=== PATIENT | male | born 1945 | race Caucasian/White ===

== ENCOUNTER 2016-08-16 15:08 | Inpatient (IN) | payer MEDICARE, OTHER ==
[2016-08-16 15:11] VITALS: BMI 30.4
--- NOTE | 2016-08-16 15:38 | ED PDOC ---
Arrival/HPI - General Chief Complaint: Shortness Of Breath Time Seen by Provider: 08/16/16 15:20 - History of Present Illness Narrative History of Present Illness (Text): 08/16/16 15:36 70-year-old male with a history of end-stage renal disease on hemodialysis, brought to the emergency department from hemodialysis center for fluid overload. History obtained from patient's nurse and Dr. Frazier. States that patient has a history of CHF, diastolic dysfunction, hypertension, diabetes. Reports patient needs admission for his respiratory status. Patient denies any chest pain at this time, denies fevers chills. Patient does state that he has intermittent shortness of breath. No other complaints. Past Medical History - Provider Review Nursing Documentation Reviewed: Yes - Infectious Disease Hx of Infectious Diseases: None - Cardiac Hx Hypertension: Yes - Neurological Hx Paralysis: No - Renal Hx Dialysis: Yes - Hematological/Oncological Hx Blood Transfusions: Yes (1 YR AGO) Hx Blood Transfusion Reaction: No - Musculoskeletal/Rheumatological Hx Musculoskeletal Disorders: Yes - Psychiatric Hx Substance Use: No - Anesthesia Hx Anesthesia Reactions: No Hx Malignant Hyperthermia: No - Suicidal Assessment Feels Threatened In Home Enviroment: No Family/Social History - Physician Review Nursing Documentation Reviewed: Yes Family/Social History: Unknown Family HX Smoking Status: Never Smoked Hx Alcohol Use: No Hx Substance Use: No Allergies/Home Meds Allergies/Adverse Reactions: Allergies No Known Drug Allergies Allergy (Verified 05/05/15 07:32) NONE Home Medications: Home Meds Medication Instructions Recorded Confirmed ALPRAZolam [Xanax] 0.25 mg PO QPM 06/22/15 06/23/15 Aspirin [Ecotrin] 81 mg PO QAM 06/22/15 06/23/15 Bumetanide [Bumex] 2 mg PO BID 06/22/15 06/23/15 Calcitriol [Rocaltrol] 0.25 mcg PO QAM 06/22/15 06/23/15 Carvedilol [Coreg] 25 mg PO QAM 06/22/15 06/23/15 Clonidine HCl [Catapres] 0.3 mg PO BID 06/22/15 06/23/15 Eplerenone 25 mg PO QPM 06/22/15 06/23/15 Febuxostat [Uloric] 40 mg PO QAM 06/22/15 06/23/15 Glimepiride [amaRYL] 2 mg PO PRN PRN 06/22/15 06/23/15 Hydralazine HCl 100 mg PO BID 06/22/15 06/23/15 Isosorbide Mononitrate [Imdur] 90 mg PO QPM 06/22/15 06/23/15 NIFEdipine ER [Procardia XL] 90 mg PO QAM 06/22/15 06/23/15 Potassium Chloride [K-Dur 20] 20 meq PO QAM 06/22/15 06/23/15 Rosuvastatin Calcium [Crestor] 10 mg PO QPM 06/22/15 06/23/15 Sertraline [Zoloft] 100 mg PO HS 06/22/15 06/23/15 predniSONE [predniSONE Tab] 5 mg PO DAILY 06/22/15 06/23/15 Physical Exam - Physical Exam Narrative Physical Exam (Text): - Review of Systems Constitutional: Normal. absent: Fatigue, Weight Change, Fevers Eyes: Normal ENT: denies sore throat, denies tristhmus Respiratory: Shortness of breath. absent: Cough, Sputum Cardiovascular: absent: Chest Pain, Palpitations, Syncope Gastrointestinal: Normal. absent: Abdominal Pain, Diarrhea, Nausea, Vomiting Genitourinary: Normal. absent: Dysuria, Frequency, Hematuria Musculoskeletal: Normal. absent: Arthralgias, Back Pain, Neck Pain Skin: no rashes, no erythema Neurological: absent: Focal Weakness Endocrine: Normal Hemo/Lymphatic: Normal Psychiatric: No suicidal or homicidal ideations Physical exam Patient appears age appropriate in no respiratory distress - Systems Exam Head: Present: Atraumatic, Normocephalic Pupils: Present: PERRL Extroacular Muscles: Present: EOMI Conjunctiva: Present: Normal Mouth: Present: Moist Mucous Membranes Neck: Present: Normal Range of Motion. No: MIDLINE TENDERNESS, Paraspinal Tenderness Respiratory/Chest: Present: Right hemodialysis catheter, right basilar wheezing with scattered rhonchi, Good Air Exchange. No: Respiratory Distress, Accessory Muscle Use, Tachypneic Cardiovascular: Present: Regular Rate and Rhythm, Normal S1, S2, Peripheal Pulses Present. No: Murmurs Abdomen: Present: Normal Bowel Sounds. No: Tenderness, Distention, Peritoneal Signs, Rebound, Guarding Back: Present: Normal Inspection. No: Midline Tenderness, Paraspinal Tenderness Upper Extremity: Present: Normal Inspection. No: Cyanosis, Edema Lower Extremity: Present: Bilateral pitting edema with no asymmetry or tenderness to palpation. Neurological: Present: GCS=15, Speech Normal, cranial nerves II through XII fully intact with no cerebellar abnormality, neurosensory fully intact. No focal neurological deficits. Skin: Present: Warm, Dry, Normal Color. No: Rashes Lymphatic: Present: OX3, NI, NC Psychiatric: Present: Alert, not anxious Vital Signs Reviewed: Yes Vital Signs Temp Pulse Resp BP Pulse Ox 08/16/16 16:42 55 L 16 147/60 98 08/16/16 16:27 52 L 193/76 H 100 08/16/16 15:08 98.3 F 56 L 18 174/87 H 96 Temperature: Afebrile Blood Pressure: Hypertensive Pulse: Bradycardic Respiratory Rate: Normal Appearance: Positive for: Non-Toxic, Comfortable Pain Distress: None Mental Status: No: Agitated, Lethargic Medical Decision Making ED Course and Treatment: 08/16/16 15:49 71-year-old male history of hemodialysis, diastolic dysfunction, hypertension, diabetes, sent from hemodialysis center fluid overload. On examination patient does not appear to be in respiratory distress, however he does have bibasilar wheezing and scattered rhonchi. Case has been discussed with patient's range scientist Dr. Frazier, who recommends admission for further workup. Patient's primary physician is Dr. Tameka Garrett with [place] [facility] [place] shows sinus bradycardia, 55 bpm, no ST segment elevations. Interpreted by me. Plan to obtain labs, imaging, nebulizer treatment, reevaluate. 08/16/16 16:44 Patient's wheezing has greatly improved after nebulizer treatments. Patient hypertension has been treated with Nitropaste and hydralazine IV. On reevaluation, patients blood pressure is 140s over 60s. Patient has no focal neurological deficits on reevaluation. Case discussed with , except that admission to her service for further workup. Patient aware of and agrees with plan. 08/16/16 16:46 Patient's Chest x-ray shows cardiomegaly, vascular congestion, no obvious infiltrates, no pneumothorax. Interpreted by me. - Critical Care Critical Care Minutes: 30 minutes - Lab Interpretations Lab Results: 08/16/16 15:40 08/16/16 15:40 Lab Results 08/16/16 15:40: Sodium 137, Potassium 3.1 L, Chloride 97 L, Carbon Dioxide 29, Anion Gap 14, BUN 23 H, Creatinine 2.3 H, Est GFR ( Amer) 34, Est GFR ( Non-Af Amer) 28, Random Glucose 82, Calcium 9.0, Total Bilirubin 1.0, AST 21, ALT 30, Alkaline Phosphatase 68, Total Protein 7.5, Albumin 4.1, Globulin 3.5, Albumin/Globulin Ratio 1.2 08/16/16 15:40: PT 12.1 H, INR 1.12 H, APTT 31.9 H 08/16/16 15:40: WBC 3.1 L D, RBC 2.90 L, Hgb 8.7 L, Hct 26.1 L, MCV 90.0, MCH 30.0, MCHC 33.3, RDW 14.3, Plt Count 155, MPV 9.3, Gran % 67.1, Lymph % (Auto) 19.7 L, [place] % (Auto) 8.7 H, Eos % (Auto) 3.9, Baso % (Auto) 0.6, Gran # 2.07, Lymph # 0.6 L, [place] # 0.3, Eos # 0.1, Baso # 0.02 - RAD Interpretation Radiology Orders: 08/16/16 15:32 CHEST PORTABLE [RAD] Stat - Medication Orders Current Medication Orders: Hydralazine HCl (Apresoline) 10 mg IVP STAT CHON Last Admin: 08/16/16 16:30 Dose: 10 mg Discontinued Medications Albuterol/Ipratropium (Duoneb 3 Mg/0.5 Mg (3 Ml) Ud) 3 ml IH STAT STA Stop: 08/16/16 15:51 Last Admin: 08/16/16 16:04 Dose: 3 ml Methylprednisolone (Solu-Medrol) 125 mg IVP STAT STA Stop: 08/16/16 15:51 Last Admin: 08/16/16 16:03 Dose: 125 mg Nitroglycerin (Nitro-Bid 2% Oint) 1 ea TOP STAT STA Stop: 08/16/16 16:12 Last Admin: 08/16/16 16:30 Dose: 1 ea Disposition/Present on Arrival - Present on Arrival Any Indicators Present on Arrival: No History of DVT/PE: No History of Uncontrolled Diabetes: No Urinary Catheter: No History of Decub. Ulcer: No History Surgical Site Infection Following: None - Disposition Have Diagnosis and Disposition been Completed?: Yes Diagnosis: Hypertension Disposition: HOSPITALIZED Disposition Time: 16:47 Patient Plan: Admission Patient Problems: Current Active Problems Problem Status Onset Hypertension Acute Condition: FAIR Referrals: Tameka Garrett MD [Primary Care Provider] - Follow up with primary
[2016-08-16] MEDS ORDERED: Albuterol-Ipratrop 3 mg / 0.5 (3 ml) UD IH STA (15:50)
[2016-08-16 16:05] LABS: ADD MANUAL DIFF? NO
[2016-08-16] MEDS ORDERED: Nitroglycerin 2% Ointment Foilpak UD TOP STA (16:11)
[2016-08-16 16:15] LABS: BASO # 0.02 K/mm3 (0.0-2.0); BASO % 0.6 % (0.0-3.0); EOS # 0.1 (0.0-0.7); EOS % 3.9 % (1.5-5.0); GRAN # 2.07 (1.4-6.5); GRAN % 67.1 % (50.0-68.0); HEMATOCRIT 26.1 % (42.0-52.0); LYMPH # 0.6 (1.2-3.4); LYMPH % 19.7 % (22.0-35.0); MEAN CORPUSCULAR HGB CONC 33.3 g/dl (31.0-37.0); MEAN PLATELET VOLUME 9.3 fl (7.0-11.0); MONO # 0.3 (0.1-0.6); MONO % 8.7 % (1.0-6.0); PLATELET COUNT 155 10^3/uL (120.0-450.0); RED CELL DISTRIBUTION WIDTH 14.3 % (11.5-14.5); WHITE BLOOD COUNT 3.1 10^3/ul (4.5-11.0)
[2016-08-16 16:21] LABS: POTASSIUM 3.1 mmol/L (3.6-5.0); TOTAL PROTEIN 7.5 g/dL (5.8-8.3)
[2016-08-16 16:22] LABS: ALB/GLOB RATIO 1.2 (1.1-1.8)
[2016-08-16 16:23] LABS: INR 1.12 (0.93-1.08); PARTIAL THROMBOPLASTIN TIME 31.9 Seconds (23.7-30.8)
[2016-08-16] MEDS ORDERED: Albuterol-Ipratrop 3 mg / 0.5 (3 ml) UD IH PRN (17:29)
[2016-08-16] MEDS ORDERED: Cefepime 1gm in NS 100ml 1 GM/100 ML BAG IVPB STA (17:39)
[2016-08-16] MEDS ORDERED: Vancomycin 1gm in NS 250ml 1 GM/250 ML BAG IVPB STA (17:39)
--- NOTE | 2016-08-16 20:45 | CT ---
EXAM: CT Chest Without Intravenous Contrast CLINICAL HISTORY: 70 years old, male; Signs and symptoms; Cough; Symptoms not specified; Additional info: R/O pneumonia Additional history: Treated lymphoma TECHNIQUE: Axial computed tomography images of the chest without intravenous contrast. This CT exam was performed using one or more of the following dose reduction techniques: automated exposure control, adjustment of the mA and/or kV according to patient size, and/or use of iterative reconstruction technique. MIP reconstructed images were created and reviewed. Coronal and sagittal reformatted images were created and reviewed. EXAM DATE/TIME: 08/16/2016 5:32 PM COMPARISON: DX - CHEST PORTABLE 08/16/2016 3:46:23 PM FINDINGS: Artifacts: Motion artifact degrades image quality.Streak artifact degrades image quality. Lungs: Trachea and main bronchi are patent. There is narrowing of left upper and lower lobe bronchi in the hilum. There is narrowing of right upper, middle and lower lobe bronchi the right hilum. Motion limited evaluation of the pulmonary parenchyma. There are asymmetric groundglass opacities greatest at the lung bases. There is scarring at the right apex. There is more focal air space disease in the lingula. Pleural space: There is a small right effusion. There is no definite left effusion. Heart: The heart is enlarged. There is there is a prosthetic mitral valve.There are coronary artery calcifications. Calcifications in the aorta and great vessels. There is mild prominence of the ascending aorta, the 0.86 cm in maximal dimension. There is mild prominence of main pulmonary artery 3.4 cm in diameter. Mediastinum: There is mediastinal adenopathy. Hilar fullness suggests hilar adenopathy. Thyroid: Thyroid is not optimally demonstrated. Bones/joints: Bony structures are osteopenic.There are degenerative changes in the osseus structures.There are postsurgical changes of median sternotomy. There is mild compression deformity T3, T4, T5 and T7. Soft tissues: unremarkable Vasculature: See above. Lymph nodes: See findings above and below. Upper abdomen: Pancreas is atrophic. Nodular opacities in the upper mesentery suggest adenopathy. Tubes, lines and devices: There is a right jugular catheter the tip at the cavoatrial junction. IMPRESSION: Mediastinal and hilar adenopathy; probable upper mesenteric adenopathy; limited evaluation of pulmonary parenchyma due to patient motion, bilateral groundglass airspace disease, no lobar or segmental consolidation; small right effusion; cardiomegaly and atherosclerotic disease; prosthetic mitral valve Additional findings as described above.
--- NOTE | 2016-08-16 20:54 | CARD ---
APPROVED REPORT EKG Measurement Heart [id number] <Conclusion> Sinus bradycardia T wave abnormality, consider inferior ischemia Prolonged QT Abnormal ECG
[2016-08-16] MEDS: Albuterol-Ipratrop 3 mg / 0.5 (3 ml) UD IH SCH (21:02)
--- NOTE | 2016-08-16 21:05 | CP.PCM.HP ---
<Alexander Lopez - Last Filed: 08/16/16 21:26> History of Present Illness - History of Present Illness History of Present Illness: HPI: Patient is a 70yo male with past medical history of ESRD on hemodialysis ( Mon, , Mon), CHF, diastolic dysfunction, hypertension and diabetes mellitus type 2 that presents upon recommendation of his rails developer, Dr. Frazier for fluid overload. Patient is a poor historian despite use of a information technology teacher. History obtained from his daughter, Yola who reported that for the past 2-3 days her father has been having shortness of breath associated with wheezing and coughing. He resides at [facility] and was reportedly exposed to some sick residents. His daughter also reported that between his dialysis session on Monday and today, he had gained approximately 6kg in weight. She reported that he has been noncooperative with his diet restrictions and drinks copious amounts of water at the shelter. He also reportedly has a habit of not taking his medication. Patient denied chest pain, palpitations, abdominal pain, nausea, vomiting, fever, chills, cough, focal weakness, numbness, tingling. He admitted to cough with shortness of breath. 12 point ROS as per HPI above, otherwise negative PMHx: ESRD on hemodialysis (Mon, , Mon), CHF, diastolic dysfunction, hypertension, DM2 PSHx: Mitral valve repair (2008), right hip replacement, right knee repair Allergies: NKDA Medications: reviewed and as per chart Family Hx: Noncontributory Social Hx: Denies tobacco use, illicit drugs and alcohol use; Lives in [facility] Present on Admission - Present on Admission Any Indicators Present on Admission: No Past Patient History - Infectious Disease Hx of Infectious Diseases: None - Past Social History Smoking Status: Never Smoked - CARDIAC Hx Hypertension: Yes - NEUROLOGICAL Hx Paralysis: No - RENAL Hx Dialysis: Yes - HEMATOLOGICAL/ONCOLOGICAL Hx Blood Transfusions: Yes (1 YR AGO) Hx Blood Transfusion Reaction: No - MUSCULOSKELETAL/RHEUMATOLOGICAL Hx Musculoskeletal Disorders: Yes - PSYCHIATRIC Hx Substance Use: No - SURGICAL HISTORY Hx Surgeries: Yes - ANESTHESIA Hx Anesthesia Reactions: No Hx Malignant Hyperthermia: No Meds Allergies/Adverse Reactions: Allergies Allergy/AdvReac Type Severity Reaction Status Date / Time No Known Drug Allergies Allergy NONE Verified 05/05/15 07:32 Physical Exam - Constitutional Appears: Non-toxic, No Acute Distress - Head Exam Head Exam: ATRAUMATIC, NORMAL INSPECTION, NORMOCEPHALIC - Eye Exam Eye Exam: EOMI Pupil Exam: PERRL - ENT Exam ENT Exam: Mucous Membranes Moist - Neck Exam Neck exam: Positive for: Normal Inspection - Respiratory Exam Respiratory Exam: Rhonchi, Wheezes. absent: Accessory Muscle Use, Rales, Respiratory Distress, Stridor - Cardiovascular Exam Cardiovascular Exam: RRR, +S1, +S2. absent: Gallop, JVD, Rubs - GI/Abdominal Exam GI & Abdominal Exam: Soft. absent: Distended, Firm, Guarding, Rebound, Rigid, Tenderness - Extremities Exam Extremities exam: Positive for: pedal edema (3+ pitting edema), pedal pulses present. Negative for: tenderness - Neurological Exam Neurological exam: Alert, Oriented x3 - Psychiatric Exam Psychiatric exam: Normal Affect, Normal Mood - Skin Skin Exam: Dry, Intact, Normal Color, Warm Results - Vital Signs Recent Vital Signs: Last Vital Signs Temp 98.3 F 08/16/16 15:08 Pulse 71 08/16/16 20:44 Resp 18 08/16/16 20:44 BP 153/59 H 08/16/16 20:44 Pulse Ox 97 08/16/16 20:44 - Labs Result Diagrams: 08/16/16 15:40 08/16/16 15:40 Labs: Laboratory Results - last 24 hr 08/16/16 17:53 POC Glucose (mg/dL) 122 H Assessment & Plan - Assessment and Plan (Free Text) Plan: 70yo male with history of ESRD on hemodialysis (Tue, Thur, Sat), CHF, diastolic dysfunction, HTN, DM2 presents for shortness of breath associated with cough for past 2-3 days 1. Volume overload secondary to ESRD vs PNA -afebrile, no leukocytosis -CXR reviewed; cardiomegaly; increased interstitial markings; concerning for pulmonary edema vs PNA -EKG reviewed -CT Chest pending -Echocardiogram pending -Home medication reviewed and reconciled -Nephrology consulted - Dr. Frazier -Patient to be scheduled to continue inpatient dialysis as per nephrology recommendations -Pending: Blood culture, sputum culture, procalcitonin 2. CHF -EKG reviewed -Echocardiogram pending -Continue cardiac medications 3. Hypertension -Continue home antihypertensive medications 4. Diabetes mellitus type 2 -Fingersticks ACHS -Renal diet -Humulin med dose ISS Patient seen, reviewed and case discussed with attending, Dr. Colón - Date & Time Date: 08/16/16 Time: 21:08 <Wil Colón - Last Filed: 08/17/16 14:10> Results - Vital Signs Recent Vital Signs: Last Vital Signs Temp 97.4 F L 08/17/16 12:00 Pulse 64 08/17/16 12:00 Resp 16 08/17/16 12:00 BP 188/70 H 08/17/16 11:57 Pulse Ox 95 08/17/16 06:00 - Labs Result Diagrams: 08/16/16 15:40 08/16/16 15:40 Labs: Laboratory Results - last 24 hr 08/16/16 08/16/16 08/17/16 17:53 22:30 07:12 POC Glucose (mg/dL) 122 H 201 H 97 08/17/16 11:15 POC Glucose (mg/dL) 134 H Attending/Attestation - Attestation I have personally seen and examined this patient.: Yes I have fully participated in the care of the patient.: Yes I have reviewed all pertinent clinical information: Yes Notes (Text): 08/17/16 14:06 Attending note; Patient seen and examined with resident in ER. Patient is mostly Italian speaking. Not willing to give information to the information technology teacher. History from rails developer/old chart and patient's daughter. Patient is a 70 year old Italian male with past medical history of ESRD on hemodialysis (Tue, Thur, Sat), CHF, diastolic dysfunction, hypertension and diabetes mellitus type 2 that presents upon recommendation of his rails developer, Dr. Frazier for fluid overload. Patient just got hemodialysis today. Patient has difficult to control volume status. Patient is currently in [place] [facility]. Patient is also refusing to take blood pressure medication. Shortness of breath and cough; mostly secondary to volume overload. We will give extra hemodialysis tomorrow. Case discussed with rails developer in detail. Chest x-ray showed right perihilar infiltrate. CT chest ordered. Anemia; chronic secondary to menstruation renal disease. Depression; will get psych evaluation. Upon discharge patient will follow-up with PMD Dr. Tameka Garrett. 08/17/16 14:09
[2016-08-16] MEDS: Insulin Reg-MEDIUM-Coverage SC SCH ×2 (22:21→22:32)
[2016-08-17] MEDS: Albuterol-Ipratrop 3 mg / 0.5 (3 ml) UD IH SCH ×5 (01:37→20:18)
[2016-08-17] MEDS: Pantoprazole 40 mg EC Tab PO SCH (06:09)
[2016-08-17] MEDS ORDERED: Potassium Chloride 20 mEq ER Tab PO ONE (06:30)
[2016-08-17] MEDS ORDERED: Metoprolol 1 mg/ml Inj IVP PRN (07:13)
[2016-08-17] MEDS: Insulin Reg-MEDIUM-Coverage SC SCH ×4 (08:10→21:41)
--- NOTE | 2016-08-17 08:41 | RAD ---
HISTORY: cough COMPARISON: No prior. FINDINGS: LUNGS: Hilar fullness with main the right perihilar small patchy airspace opacities. Discoid atelectasis and/or scarring in the left mid lung. Hilar lymphadenopathy with or without hilar vascular engorgement in the differential. An element of pulmonary vascular congestion is suspect. Superimposed small patchy airspace opacities of unclear significance are also suggested. No dense consolidation appreciated. PLEURA: No significant pleural effusion identified, no pneumothorax apparent. CARDIOVASCULAR: Cardiomegaly. OSSEOUS STRUCTURES: Midline sternotomy. Valvular prosthesis suggested probably mitral VISUALIZED UPPER ABDOMEN: Normal. OTHER FINDINGS: There is a right jugular catheter the tip at the cavoatrial junction. IMPRESSION: Cardiomegaly with hilar fullness -in part some of this may be due to pulmonary vascular congestion. There is additional history of treated lymphoma ; hence hilar lymphadenopathy is in the differential with acardiomegaly. Pulmonary vascular congestion is suspect. Additional small patchy right lung opacities unclear significance coalescent areas of pulmonary in of interstitial pulmonary edema, nonspecific small infiltrates and/or lymphomatous deposits are also in the differential. Please note this same-day CT chest report for more sensitive evaluation
[2016-08-17] MEDS ORDERED: Non Formulary Medication (Febuxostat [Uloric] 40 MG) PO SCH (10:00)
[2016-08-17] MEDS: NIFEdipine 90 mg ER Tab PO SCH (10:34)
--- NOTE | 2016-08-17 12:30 | CP.PCM.PN ---
<KelliKim - Last Filed: 08/17/16 12:26> Subjective - Date & Time of Evaluation Date of Evaluation: 08/17/16 Time of Evaluation: 10:00 - Subjective Subjective: Hospitalist Progress Note Patient seen and examined at bedside. There were no acute overnight events. He had dialysis today and will have it once again today. Patient is depressed today. He is refusing medications. He denies CP, SOB, n/v/d, numbness/tingling. Objective - Vital Signs/Intake and Output Vital Signs (last 24 hours): Temp Pulse Resp BP Pulse Ox 98.7 F 83 20 188/70 H 95 08/17/16 06:00 08/17/16 11:57 08/17/16 06:00 08/17/16 11:57 08/17/16 06:00 Intake and Output: 08/17/16 08/17/16 06:59 18:59 Intake Total 240 Output Total 0 Balance 240 - Medications Medications: Current Medications Albuterol/Ipratropium (Duoneb 3 Mg/0.5 Mg (3 Ml) Ud) 3 ml IH [id number] [facility] Last Admin: 08/17/16 07:59 Dose: Not Given Albuterol/Ipratropium (Duoneb 3 Mg/0.5 Mg (3 Ml) Ud) 3 ml IH Q2H PRN PRN Reason: Shortness of Breath Aspirin (Ecotrin) [facility] [place] [facility] [place] Admin: 08/17/16 10:34 Dose: Not Given Atorvastatin Calcium (Lipitor) 40 mg PO DIN [facility] Last Admin: 08/16/16 19:17 Dose: Not Given Calcitriol (Rocaltrol) 0.25 mcg [facility] [place] Last Admin: 08/17/16 10:35 Dose: Not Given Clonidine HCl (Catapres) 0.1 mg PO TID PRN PRN Reason: Systolic Blood Pressure Last Admin: 08/16/16 22:11 Dose: 0.1 mg Hydralazine HCl (Apresoline) 25 mg PO BID [facility] Last Admin: 08/17/16 10:34 Dose: Not Given Hydralazine HCl (Apresoline) 10 mg IVP Q6 PRN PRN Reason: Systolic Blood Pressure Insulin Human Regular (Humulin R Med) 0 units SC [facility] PRN Reason: Protocol Last Admin: 08/17/16 12:04 Dose: Not Given Isosorbide Mononitrate (Imdur) 90 mg PO QPM [facility] Last Admin: 08/16/16 18:35 Dose: Not Given Labetalol HCl (Trandate) 200 mg PO BID [facility] Last Admin: 08/17/16 10:35 Dose: Not Given Metoprolol Tartrate (Lopressor) 5 mg IVP Q6 PRN PRN Reason: Systolic Blood Pressure Last Admin: 08/17/16 11:57 Dose: 5 mg Minoxidil (Minoxidil) 5 mg PO BID [facility] Last Admin: 08/17/16 10:34 Dose: Not Given Mirtazapine (Remeron) 15 mg PO [facility] Last Admin: 08/16/16 22:11 Dose: 15 mg Nifedipine (Procardia Xl) 90 mg PO QAM [facility] Last Admin: 08/17/16 10:34 Dose: Not Given Pantoprazole Sodium (Protonix Ec Tab) 40 mg PO 0630 [facility] Last Admin: 08/17/16 06:09 Dose: Not Given Sertraline HCl (Zoloft) 100 mg PO [facility] Last Admin: 08/16/16 22:11 Dose: 100 mg - Labs Labs: PT 12.1 Seconds (9.9-11.8) H 08/16/16 15:40 INR 1.12 (0.93-1.08) H 08/16/16 15:40 APTT 31.9 Seconds (23.7-30.8) H 08/16/16 15:40 - Constitutional Appears: No Acute Distress - Head Exam Head Exam: NORMAL INSPECTION, NORMOCEPHALIC - Eye Exam Eye Exam: Normal appearance Pupil Exam: NORMAL ACCOMODATION - ENT Exam ENT Exam: Mucous Membranes Moist - Neck Exam Neck Exam: Full ROM - Respiratory Exam Respiratory Exam: Clear to Ausculation Bilateral, NORMAL BREATHING PATTERN. absent: Rales, Rhonchi, Wheezes - Cardiovascular Exam Cardiovascular Exam: REGULAR RHYTHM, +S1, +S2. absent: Gallop, Rubs, Murmur - GI/Abdominal Exam GI & Abdominal Exam: Soft, Normal Bowel Sounds. absent: Rigid, Tenderness, Mass , Rebound - Extremities Exam Extremities Exam: Pedal Edema. absent: Calf Tenderness - Neurological Exam Neurological Exam: Awake, CN II-XII Intact - Psychiatric Exam Psychiatric exam: Depressed, Normal Affect - Skin Skin Exam: Dry, Normal Color, Warm Assessment and Plan - Assessment and Plan (Free Text) Assessment: This is a 70Y M with PMH ESRD on HD (T,T,Sat), CHF, HTN, DM and diastolic dysfunction admitted for fluid overload. Plan: 1. Fluid overload - improved - secondary to ESRD - HD yesterday- removed 8kg of fluid, HD today - Continue to monitor daily weight, strict I&O - Echo pending - Family wants AV fistula- this will be done as outpatient with Dr. De La O - Will do AV mapping to prep for outpatient fistula - Nephro Dr. Frazier consulted- help appreciated - Continue Duoneb prn SOB - Continue Calcitriol 2. Lymphadenopathy - CT chest showed hilar and mediastinal adenopathy - Pt noted to have this for years as per daughter - Dr. Kelley (Heme/Onc) consulted. - If biopsy needed, will need to do at diff facility that has cardiothoracic surgeon 3. Depression - Patient reports feeling depressed - Refusing medications and blood draw - Psych consulted - Continue Remeron and Zoloft 3. CHF - Echo pending - Continue to monitor daily weight, strict I&O - Continue ASA, Lipitor 4. HTN - Pt refusing meds - Hydralazine IV prn, Clonidine prn - Continue Hydralaine, Imdur, Labetolol, Lopressor, Minoxidil, Nifedipine 5. DM - ISS - Blood glucose monitor ACHS - maintain euglycemia GI ppx: Protonix DVT ppx: Heparin with dialysis Dispo: Upon D/C patient will be sent to halfway. Educated on the importance of taking medications. Spoke with daughter who is aware of situation. Will follow up with Dr. Frazier (Nephro), Dr. Kelley (Heme), Dr. Marquez (PMD) and Dr. Hargrove (Surgery) as outpatient. Case seen, reviewed and discussed with attending Rocio Pereira PGY1 <Wil Colón - Last Filed: 08/17/16 14:13> Objective - Vital Signs/Intake and Output Vital Signs (last 24 hours): Temp Pulse Resp BP Pulse Ox 97.4 F L 64 16 188/70 H 95 08/17/16 12:00 08/17/16 12:00 08/17/16 12:00 08/17/16 11:57 08/17/16 06:00 Intake and Output: 08/17/16 08/17/16 06:59 18:59 Intake Total 240 Output Total 0 Balance 240 - Medications Medications: Current Medications Albuterol/Ipratropium (Duoneb 3 Mg/0.5 Mg (3 Ml) Ud) 3 ml IH [id number] [facility] Last Admin: 08/17/16 14:05 Dose: Not Given Albuterol/Ipratropium (Duoneb 3 Mg/0.5 Mg (3 Ml) Ud) 3 ml IH Q2H PRN PRN Reason: Shortness of Breath Aspirin (Ecotrin) 81 mg PO QAM [facility] Last Admin: 08/17/16 10:34 Dose: Not Given Atorvastatin Calcium (Lipitor) 40 mg PO DIN [facility] Last Admin: 08/16/16 19:17 Dose: Not Given Calcitriol (Rocaltrol) 0.25 mcg PO QAM [facility] Last Admin: 08/17/16 10:35 Dose: Not Given Clonidine HCl (Catapres) 0.1 mg PO TID PRN PRN Reason: Systolic Blood Pressure Last Admin: 08/16/16 22:11 Dose: 0.1 mg Hydralazine HCl (Apresoline) 25 mg PO BID [facility] Last Admin: 08/17/16 10:34 Dose: Not Given Hydralazine HCl (Apresoline) 10 mg IVP Q6 PRN PRN Reason: Systolic Blood Pressure Insulin Human Regular (Humulin R Med) 0 units SC [facility] PRN Reason: Protocol Last Admin: 08/17/16 12:04 Dose: Not Given Isosorbide Mononitrate (Imdur) 90 mg PO QPM [facility] Last Admin: 08/16/16 18:35 Dose: Not Given Labetalol HCl (Trandate) 200 mg PO BID [facility] Last Admin: 08/17/16 10:35 Dose: Not Given Metoprolol Tartrate (Lopressor) 5 mg IVP Q6 PRN PRN Reason: Systolic Blood Pressure Last Admin: 08/17/16 11:57 Dose: 5 mg Minoxidil (Minoxidil) 5 mg PO BID [facility] Last Admin: 08/17/16 10:34 Dose: Not Given Mirtazapine (Remeron) 15 mg PO HS [facility] Last Admin: 08/16/16 22:11 Dose: 15 mg Nifedipine (Procardia Xl) 90 mg PO QAM [facility] Last Admin: 08/17/16 10:34 Dose: Not Given Pantoprazole Sodium (Protonix Ec Tab) 40 mg PO 0630 [facility] Last Admin: 08/17/16 06:09 Dose: Not Given Sertraline HCl (Zoloft) 100 mg PO [facility] Last Admin: 08/16/16 22:11 Dose: 100 mg Vitamin B Complex/Vit C/Folic Acid (Nephro-Jamari) 1 tab PO DAILY [facility] - Labs Labs: PT 12.1 Seconds (9.9-11.8) H 08/16/16 15:40 INR 1.12 (0.93-1.08) H 08/16/16 15:40 APTT 31.9 Seconds (23.7-30.8) H 08/16/16 15:40 Attending/Attestation - Attestation I have personally seen and examined this patient.: Yes I have fully participated in the care of the patient.: Yes I have reviewed all pertinent clinical information, including history, physical exam and plan: Yes Notes (Text): Attending note; Patient seen and examined with resident in room 277. Patient is a 70 year old [place]ian male with past medical history of ESRD on hemodialysis (Tue, Thur, Sat), CHF, diastolic dysfunction, hypertension and diabetes mellitus type 2 that presents upon recommendation of his customer support associate, Dr. Frazier for fluid overload. Patient will get hemodialysis today. Patient is also refusing to take blood pressure medication. IV metoprolol when necessary ordered. Shortness of breath and cough; mostly secondary to volume overload. We will give extra hemodialysis tomorrow. Case discussed with customer support associate in detail. Chest x-ray showed right perihilar infiltrate. CT chest showed right hilar lymphadenopathy. Case discussed with pulmonary in detail. Case discussed with oncology Dr. Kelley in detail. Right chest dialysis catheter. Patient will need AV fistula as outpatient. Vein mapping will be done. Follow-up with outpatient for AV fistula. Anemia; chronic secondary to menstruation renal disease. Depression; will get psych evaluation. Case discussed with patient's daughter in detail by the resident. Upon discharge patient will follow-up with PMD Dr. Tameka Garrett.
--- NOTE | 2016-08-17 14:55 | CP.PCM.CON ---
History of Present Illness - History of Present Illness History of Present Illness: Initial Nephrology Consultation: Assessment/Plan: End stage renal disease on hemodialysis (monday and ) via permacath with fluid overload and shortness of breath: Will plan for isolated UF today and routine HD tomorrow. Nephrovite 1 tab/day. vascular surgery eval for AVF. Anemia: PRBC as needed. On ALLIE as Aranesp 60 mcg on , last Hb 8.7 Phos controlled Secondary hyperparathyroidism: continue with calcitriol. Last PTH level 110. Hypertension control with meds as ordered. will add losartan 50 mg/day. compliance to meds reinforced Hilar and mediastinal lymphadenopathy: heme/onc eval. Hypokalemia: repeat BMP Glycemic control, Dialysis consistent diet Further work up for as per primary team Dose meds/antibiotics (if needed) for ESRD status. Avoid fleets enema/magnesium based laxatives. oral fluid restriction to 1000 mL/day Thanks for allowing me to participate in care of your patient. Will follow patient with you. 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 Found to have lymphadenopathy. he had poor compliance to fluid restriction, often gaining 5-6 Kgs between treatments. He feels better now. had been refusing meds today. Denies chest pain, palpitation. Improved shortness of breath, leg swelling. has cough ROS: Constitutional Symptoms: Denies fever. No chills. No Recent Weight Changes Eyes: denies change in vision, denies watery eyes, denies double vision Ears/Nose/Mouth/Throat: Denies Abnormal Taste. No Bad breath or Bad Taste. Cardiovascular: No chest pain. There is shortness of breath. No palpitations. Pulmonary: c/o shortness of breath and cough. Gastrointestinal: denies abdominal pain No nausea. No vomiting. Denies change in bowel habits. Denies Bleeding Genitourinary: makes small amount urine Neurological: Denies headaches. No dizziness. Denies loss of balance. Denies weakness, denies tingling/numbness Dermatological: No Rash or Bruising or ulcers. Psychiatric: Denies Anxiety. c/o depression. Denies hallucinations. Rheumatological: No joint pain. c/o leg swelling Endocrine: Denies over tiredness. Denies Fatigue and Heat/Cold Intolerance. Physical Examination: General Appearance: Comfortable, in no acute respiratory distress, co-operative . Vitals reviewed and noted as below Head; Atraumatic, normocephalic ENT: no ulcers no thrush. Tongue is midline. Oropharynx: no rash or ulcers. EYES: Pupils are equal, round and reactive to light accommodation. Eye muscles and extraocular movement intact. Sclera is anicteric. Neck; supple no lymphadenopathy, no thyromegaly or bruit Lungs: Normal respiratory rate/effort. Breath sounds bilateral equal, no wheeze. bibasal few crackles + Heart: Normal rate. s1s2 normal. No rub or gallop. Extremities: 2+ edema. No varicose veins Neurological: Patient is alert, awake and oriented to person, place and time. No focal deficit. Strength bilateral appropriate and equal Skin: Warm and dry. Normal turgor. No rash. Palpitation: Normal elasticity for age Abdomen: Abdomen is soft. Bowel sounds +. There is no abdominal tenderness, no guarding/rigidity or organomegaly Psych: normal insight and normal affect/mood MSK: no joint tenderness or swelling. Digits and nails normal, no deformity : kidney or bladder not palpable Access: Permacath Labs/imaging/EKG reviewed. Past medical history, past surgical history, family history, social history, allergy reviewed and noted as below Past Patient History - Infectious Disease Hx of Infectious Diseases: None - Past Social History Smoking Status: Never Smoked - CARDIAC Hx Cardiac Disorders: Yes Hx Congestive Heart Failure: Yes Hx Hypertension: Yes - PULMONARY Hx Respiratory Disorders: No - NEUROLOGICAL Hx Neurological Disorder: No - HEENT Hx HEENT Problems: No - RENAL Date of Last Dialysis Treatment: 08/16/16 - ENDOCRINE/METABOLIC Hx Endocrine Disorders: Yes Hx Diabetes Mellitus Type 2: Yes - HEMATOLOGICAL/ONCOLOGICAL Hx Blood Disorders: Yes Hx Anemia: Yes - INTEGUMENTARY Hx Dermatological Problems: No - MUSCULOSKELETAL/RHEUMATOLOGICAL Hx Falls: No - GASTROINTESTINAL Hx Gastrointestinal Disorders: No - GENITOURINARY/GYNECOLOGICAL Hx Genitourinary Disorders: No - PSYCHIATRIC Hx Substance Use: No - SURGICAL HISTORY Hx Surgeries: Yes Other/Comment: hip and knee replacement - ANESTHESIA Hx Anesthesia Reactions: No Hx Malignant Hyperthermia: No Meds Allergies/Adverse Reactions: Allergies Allergy/AdvReac Type Severity Reaction Status Date / Time No Known Drug Allergies Allergy NONE Verified 05/05/15 07:32 - Medications Medications: Current Medications Albuterol/Ipratropium (Duoneb 3 Mg/0.5 Mg (3 Ml) Ud) 3 ml IH [id number] [facility] Last Admin: 08/17/16 14:05 Dose: Not Given Albuterol/Ipratropium (Duoneb 3 Mg/0.5 Mg (3 Ml) Ud) 3 ml IH Q2H PRN PRN Reason: Shortness of Breath Aspirin (Ecotrin) 81 mg PO QAM [facility] Last Admin: 08/17/16 10:34 Dose: Not Given Atorvastatin Calcium (Lipitor) 40 mg PO DIN [facility] Last Admin: 08/16/16 19:17 Dose: Not Given Calcitriol (Rocaltrol) 0.[facility] [place] Last Admin: 08/17/16 10:35 Dose: Not Given Clonidine HCl (Catapres) 0.1 mg PO TID PRN PRN Reason: Systolic Blood Pressure Last Admin: 08/16/16 22:11 Dose: 0.1 mg Hydralazine HCl (Apresoline) 25 mg PO BID [facility] Last Admin: 08/17/16 10:34 Dose: Not Given Hydralazine HCl (Apresoline) 10 mg IVP Q6 PRN PRN Reason: Systolic Blood Pressure Insulin Human Regular (Humulin R Med) 0 units SC [facility] PRN Reason: Protocol Last Admin: 08/17/16 12:04 Dose: Not Given Isosorbide Mononitrate (Imdur) 90 mg PO QPM [facility] Last Admin: 08/16/16 18:35 Dose: Not Given Labetalol HCl (Trandate) 200 mg PO BID [facility] Last Admin: 08/17/16 10:35 Dose: Not Given Metoprolol Tartrate (Lopressor) 5 mg IVP Q6 PRN PRN Reason: Systolic Blood Pressure Last Admin: 08/17/16 11:57 Dose: 5 mg Minoxidil (Minoxidil) 5 mg PO BID [facility] Last Admin: 08/17/16 10:34 Dose: Not Given Mirtazapine (Remeron) 15 mg PO HS [facility] Last Admin: 08/16/16 22:11 Dose: 15 mg Nifedipine (Procardia Xl) 90 mg PO QAM [facility] Last Admin: 08/17/16 10:34 Dose: Not Given Pantoprazole Sodium (Protonix Ec Tab) 40 mg PO 0630 [facility] Last Admin: 08/17/16 06:09 Dose: Not Given Sertraline HCl (Zoloft) 100 mg PO [facility] Last Admin: 08/16/16 22:11 Dose: 100 mg Vitamin B Complex/Vit C/Folic Acid (Nephro-Jamari) 1 tab PO DAILY [facility] Results - Vital Signs Recent Vital Signs: Last Vital Signs Temp 97.4 F L 08/17/16 12:00 Pulse 64 08/17/16 12:00 Resp 16 08/17/16 12:00 BP 188/70 H 08/17/16 11:57 Pulse Ox 95 08/17/16 06:00 - Labs Result Diagrams: 08/16/16 15:40 08/16/16 15:40 Labs: Laboratory Results - last 24 hr 08/16/16 08/16/16 08/17/16 17:53 22:30 07:12 POC Glucose (mg/dL) 122 H 201 H 97 08/17/16 11:15 POC Glucose (mg/dL) 134 H
--- NOTE | 2016-08-17 16:01 | CP.PCM.CON ---
History of Present Illness - History of Present Illness History of Present Illness: 70 y/o M brought to [facility] due to increased SOb and cough possibly from fluid overload. I was consulted after CT chest was done and findings are to be addressed. Currently the patient is seen sitting up in bed eating his breakfast without oxygen. He refused to allow any physical exam but is not in any distress. Review of Systems - Review of Systems Systems not reviewed;Unavailable: Altered Mental Status All systems: reviewed and no additional remarkable complaints except (pt does not speak turkish. HX taken from daughter over the phone.) Past Patient History - Infectious Disease Hx of Infectious Diseases: None - Past Medical History & Family History Past Medical History?: Yes - Past Social History Smoking Status: Never Smoked Chewing Tobacco Use: No Cigar Use: No - CARDIAC Hx Cardiac Disorders: Yes Hx Congestive Heart Failure: Yes Hx Hypertension: Yes - PULMONARY Hx Respiratory Disorders: No - NEUROLOGICAL Hx Neurological Disorder: No - HEENT Hx HEENT Problems: No - RENAL Date of Last Dialysis Treatment: 08/16/16 - ENDOCRINE/METABOLIC Hx Endocrine Disorders: Yes Hx Diabetes Mellitus Type 2: Yes - HEMATOLOGICAL/ONCOLOGICAL Hx Blood Disorders: Yes Hx Anemia: Yes - INTEGUMENTARY Hx Dermatological Problems: No - MUSCULOSKELETAL/RHEUMATOLOGICAL Hx Falls: No - GASTROINTESTINAL Hx Gastrointestinal Disorders: No - GENITOURINARY/GYNECOLOGICAL Hx Genitourinary Disorders: No - PSYCHIATRIC Hx Substance Use: No - SURGICAL HISTORY Hx Surgeries: Yes Other/Comment: hip and knee replacement - ANESTHESIA Hx Anesthesia Reactions: No Hx Malignant Hyperthermia: No Meds Allergies/Adverse Reactions: Allergies Allergy/AdvReac Type Severity Reaction Status Date / Time No Known Drug Allergies Allergy NONE Verified 05/05/15 07:32 - Medications Medications: Current Medications Albuterol/Ipratropium (Duoneb 3 Mg/0.5 Mg (3 Ml) Ud) 3 ml IH [id number] [facility] Last Admin: 08/17/16 14:05 Dose: Not Given Albuterol/Ipratropium (Duoneb 3 Mg/0.5 Mg (3 Ml) Ud) 3 ml IH Q2H PRN PRN Reason: Shortness of Breath Aspirin (Ecotrin) 81 mg PO QAM [facility] Last Admin: 08/17/16 10:34 Dose: Not Given Atorvastatin Calcium (Lipitor) 40 mg PO DIN [facility] Last Admin: 08/16/16 19:17 Dose: Not Given Calcitriol (Rocaltrol) 0.25 mcg PO QAM [facility] Last Admin: 08/17/16 10:35 Dose: Not Given Clonidine HCl (Catapres) 0.1 mg PO TID PRN PRN Reason: Systolic Blood Pressure Last Admin: 08/16/16 22:11 Dose: 0.1 mg Darbepoetin Bg (Aranesp) 60 mcg IVP ONCE ONE Stop: 08/18/16 07:01 Hydralazine HCl (Apresoline) 25 mg PO BID [facility] Last Admin: 08/17/16 10:34 Dose: Not Given Hydralazine HCl (Apresoline) 10 mg IVP Q6 PRN PRN Reason: Systolic Blood Pressure Insulin Human Regular (Humulin R Med) 0 units SC [facility] PRN Reason: Protocol Last Admin: 08/17/16 12:04 Dose: Not Given Isosorbide Mononitrate (Imdur) 90 mg PO QPM [facility] Last Admin: 08/16/16 18:35 Dose: Not Given Labetalol HCl (Trandate) 200 mg PO BID [facility] Last Admin: 08/17/16 10:35 Dose: Not Given Losartan Potassium (Cozaar) 50 mg PO DAILY [facility] Metoprolol Tartrate (Lopressor) 5 mg IVP Q6 PRN PRN Reason: Systolic Blood Pressure Last Admin: 08/17/16 11:57 Dose: 5 mg Minoxidil (Minoxidil) 5 mg PO BID [facility] Last Admin: 08/17/16 10:34 Dose: Not Given Mirtazapine (Remeron) 30 mg PO [facility] Nifedipine (Procardia Xl) 90 mg PO QAM [facility] Last Admin: 08/17/16 10:34 Dose: Not Given Pantoprazole Sodium (Protonix Ec Tab) 40 mg PO 0630 [facility] Last Admin: 08/17/16 06:09 Dose: Not Given Sertraline HCl (Zoloft) 100 mg PO HS [facility] Last Admin: 08/16/16 22:11 Dose: 100 mg Vitamin B Complex/Vit C/Folic Acid (Nephro-Jamari) 1 tab PO DAILY [facility] Physical Exam - Constitutional Appears: Well - Head Exam Head Exam: ATRAUMATIC, NORMAL INSPECTION - Eye Exam Eye Exam: EOMI, Normal appearance Pupil Exam: NORMAL ACCOMODATION - ENT Exam ENT Exam: Mucous Membranes Moist, Normal Exam (pt refused physical exam. ) Results - Vital Signs Recent Vital Signs: Last Vital Signs Temp 97.4 F L 08/17/16 12:00 Pulse 86 08/17/16 14:00 Resp 16 08/17/16 12:00 BP 188/70 H 08/17/16 11:57 Pulse Ox 95 08/17/16 06:00 - Labs Result Diagrams: 08/16/16 15:40 08/16/16 15:40 Labs: Laboratory Results - last 24 hr 08/16/16 08/16/16 08/17/16 17:53 22:30 07:12 POC Glucose (mg/dL) 122 H 201 H 97 08/17/16 11:15 POC Glucose (mg/dL) 134 H Assessment & Plan - Assessment and Plan (Free Text) Assessment: 70 y/o M w/ SOb upon admission to [facility] SOb Likely from increased Fluid overload seen on Ct chest. CT chest reviewed and found to have increased GGo likely from increased fluid overload. No masses, but seen to have increased Hilar Lymphadenopathy and Mediastinal nodes. No Hx of Smoking, sarcoid or Lymphoma Hx was reviewed with the patient's daughter and she explained that 2 years prior a Bank Appraiser was concerned about the lymph nodes and ordered a PET ct in concern for Lymphoma . I explained that the Ct chest shows Hilar nodes and fullness . Concern for benign vs malignant causes. For definitive diagnosis Biopsy should be done. I explained that if the patient wants to explore the options of Biopsy, then scheduling and planning have to be done with Ct surgery or a place that offers EBUS. The daughter will speak to the patient to determine if he wants the procedure to be done in the near future. The patient has been losing 20 lbs in the past 6 months and lethargic while having Large lymph nodes. We will await her decision so we can move forward. After adequate fluid removal with HD, and possible repeat CT in the future the CHEST maybe evaluated once again. We will follow along.
[2016-08-17 16:11] LABS: ADD MANUAL DIFF? NO
[2016-08-17 16:26] LABS: BASO # 0.01 K/mm3 (0.0-2.0); BASO % 0.3 % (0.0-3.0); EOS % 0.3 % (1.5-5.0); GRAN # 2.87 (1.4-6.5); GRAN % 74.5 % (50.0-68.0); LYMPH # 0.6 (1.2-3.4); LYMPH % 16.1 % (22.0-35.0); MEAN CELL VOLUME 90.3 fL (80.0-105.0); MEAN CORPUSCULAR HEMOGLOBIN 29.7 pg (25.0-35.0); MEAN CORPUSCULAR HGB CONC 32.9 g/dl (31.0-37.0); MEAN PLATELET VOLUME 10.2 fl (7.0-11.0); MONO # 0.3 (0.1-0.6); MONO % 8.8 % (1.0-6.0); PLATELET COUNT 195 10^3/uL (120.0-450.0); RED CELL DISTRIBUTION WIDTH 14.7 % (11.5-14.5); WHITE BLOOD COUNT 3.9 10^3/ul (4.5-11.0)
[2016-08-17 17:18] LABS: ALB/GLOB RATIO 1.1 (1.1-1.8); BILIRUBIN,TOTAL 0.9 mg/dL (0.2-1.3); CALCIUM 9.5 mg/dL (8.4-10.5); POTASSIUM 3.5 mmol/L (3.6-5.0); TOTAL PROTEIN 7.7 g/dL (5.8-8.3)
--- NOTE | 2016-08-17 20:09 | CON ---
DATE: 08/17/2016 Shortly, patient is a 70-year-old male, end-stage renal disease on hemodialysis. The patient was adm itted to the medical floor for evaluation of fluid overload and dialysis. The patient was found to b e depressed. Psych consult was called. The patient presented to have some psychomotor retardation, flat affect. The patient reported that he feels depressed and upset. Denied thoughts of killing him self or others. The patient reported that he is tired of hemodialysis and patient was asking about h emodialysis procedure and why it takes 4 hours for him for dialysis. The patient was educated about that. The patient verbalized understanding. At the same time, patient reported his sleep is not devin t good. The patient denied hearing voices, denied seeing things, denied paranoid ideations. The pat ient was able, enjoyed going to [facility] and participating in [facility] activities. PAST PSYCHIATRIC HISTORY: The patient denied. The patient denied history of suicidal attempts. The patient denied being admitted to the psychiatric inpatient unit. The patient reported that he lives with his daughters in [place] as well as with his friend. The patient reported his family is mccarthy pportive. VITAL SIGNS: Reviewed. Temperature 97.4, pulse is 86, blood pressure 188/70, respirations 16. MEDICATIONS: Reviewed. DuoNeb, aspirin, Lipitor, , Catapres, hydralazine, Humulin, Imdur, labe talol, Lopressor, minoxidil, Remeron, Procardia, Protonix, Zoloft, vitamin B complex. The patient wa s refusing his medications today without any obvious reasons. LABORATORIES: Reviewed. MENTAL STATUS EXAMINATION: The patient appears to be alert. The patient knows that he is in the hos pital. Intermittent eye contact. Speech was underproductive, low volume. Mood described as depress ed. Affect was constricted, mood congruent. Thought process was coherent and goal directed, but obv iously patient has some language barrier. Thought content: The patient denied visual, auditory, or tactile hallucinations. Denied paranoid ideations. The patient denied thoughts of harming himself o r others, denied intent or plan. Insight and judgment are limited because patient was refusing his m edications. Impulses are controlled. IMPRESSION: Rule out mood disorder due to general medical condition, rule out major depressive disor froilan. The patient has multiple medical issues including end-stage renal disease on hemodialysis. The patient also has congestive heart failure, diastolic dysfunction, hypertension, diabetes. PLAN: The patient already on Remeron 15 mg. We can increase the dose to 30 mg. Zoloft can be phillip nued. This inspector automatic typewriter will follow up on this patient. Please call family for support and being involved into the patient's care. The patient does not need to be on 1:1 as of now. I will follow up and ad vise accordingly. Thank you very much for letting me participate in care of your patient. Berta Song MD cc: [phone] TT: 08/17/2016 20:08:47 Confirmation # [id number] Dictation # [id number]
[2016-08-18 00:29] VITALS: O2SAT 97
[2016-08-18] MEDS: Albuterol-Ipratrop 3 mg / 0.5 (3 ml) UD IH SCH ×4 (02:23→14:26)
[2016-08-18] MEDS: Pantoprazole 40 mg EC Tab PO SCH (06:31)
[2016-08-18] MEDS ORDERED: Darbepoetin Alfa 60 mcg/ml Inj IVP ONE (07:00)
[2016-08-18 07:56] LABS: ADD MANUAL DIFF? NO
[2016-08-18 08:06] LABS: BASO # 0.03 K/mm3 (0.0-2.0); BASO % 0.7 % (0.0-3.0); EOS # 0.1 (0.0-0.7); EOS % 1.8 % (1.5-5.0); GRAN # 2.98 (1.4-6.5); GRAN % 67.1 % (50.0-68.0); HEMATOCRIT 28.2 % (42.0-52.0); LYMPH # 0.9 (1.2-3.4); LYMPH % 20.9 % (22.0-35.0); MEAN CELL VOLUME 91.9 fL (80.0-105.0); MEAN CORPUSCULAR HEMOGLOBIN 29.6 pg (25.0-35.0); MEAN CORPUSCULAR HGB CONC 32.3 g/dl (31.0-37.0); MEAN PLATELET VOLUME 9.6 fl (7.0-11.0); MONO # 0.4 (0.1-0.6); MONO % 9.5 % (1.0-6.0); PLATELET COUNT 230 10^3/uL (120.0-450.0); RED CELL DISTRIBUTION WIDTH 14.8 % (11.5-14.5); WHITE BLOOD COUNT 4.4 10^3/ul (4.5-11.0)
[2016-08-18 08:14] LABS: ALB/GLOB RATIO 1.1 (1.1-1.8); BILIRUBIN,TOTAL 0.9 mg/dL (0.2-1.3); POTASSIUM 3.3 mmol/L (3.6-5.0); TOTAL PROTEIN 7.4 g/dL (5.8-8.3)
[2016-08-18] MEDS: Insulin Reg-MEDIUM-Coverage SC SCH ×3 (08:20→16:55)
[2016-08-18] MEDS ORDERED: Multivitamin Vitamin B Complex (Nephro-Vite) Tab PO SCH (10:00)
--- NOTE | 2016-08-18 12:09 | CARD ---
APPROVED REPORT EXAM: Two-dimensional and M-mode echocardiogram with Doppler and color Doppler. INDICATION LV Function:SystolicDiastolic 2D DIMENSIONS Left Atrium (2D)4.8 (1.6-4.0cm)IVSd1.4 (0.7-1.1cm) LVDd5.5 (3.9-5.9cm)LVOT Diameter2.1 (1.8-2.4cm) PWd1.8 (0.7-1.1cm)LVDs4.0 (2.5-4.0cm) FS (%) 27.3 %LVEF (%)52.5 (>50%) M-Mode DIMENSIONS Aortic Root3.60 (2.2-3.7cm)Aortic Cusp Exc.1.10 (1.5-2.0cm) Aortic Valve AoV Peak Tuwmqtgo591.0cm/sAoV VTI59.8cmAO Peak GR.34mmHg LVOT Peak Ktcbgeev350.0cm/sLVOT VTI22.00cmAO Mean GR.17mmHg KENNEY (VMAX)1.62us7FAR (VTI)1.27cm2 Mitral Valve MV E Vzsibnlj780.0cm/sMV A Eloddhpt751.0cm/sE/A ratio1.4 TDI E/Lateral E'0.0E/Medial E'0.0 Tricuspid Valve TR Peak Nrjemiiq577ey/sRAP EVDGLSCG82kgVtSD Peak Gr.73mmHg [id number] LEFT VENTRICLE The left ventricle is normal size. There is mild to moderate concentric left ventricular hypertrophy. The left ventricular ejection fraction is within the normal range. Mild Septal hypokinesis Transmitral Doppler flow pattern is Grade II-pseudonormal filling dynamics. RIGHT VENTRICLE The right ventricle is normal size. There is normal right ventricular wall thickness. The right ventricular systolic function is normal. ATRIA The left atrium is mildly dilated. The right atrium is mildly dilated. AORTIC VALVE The aortic valve is severely sclerotic. There is mild valvular aortic stenosis. MITRAL VALVE There is no mitral valve regurgitation noted. There is no mitral valve stenosis. There is a bioprosthetic mitral valve vs a mitral ring TRICUSPID VALVE There is severe tricuspid regurgitation. There is severe pulmonary hypertension. GREAT VESSELS The IVC is dilated. PERICARDIAL EFFUSION There is no pericardial effusion. <Conclusion> The left ventricle is normal size. There is mild to moderate concentric left ventricular hypertrophy. The left ventricular ejection fraction is within the normal range. Mild Septal hypokinesis The aortic valve is severely sclerotic. There is mild valvular aortic stenosis. There is a bioprosthetic mitral valve vs a mitral ring There is severe tricuspid regurgitation. There is severe pulmonary hypertension.
--- NOTE | 2016-08-18 12:56 | CP.PCM.PN ---
Subjective - Date & Time of Evaluation Date of Evaluation: 08/18/16 Time of Evaluation: 12:51 - Subjective Subjective: Follow up Nephrology note Assessment/Plan: End stage renal disease on hemodialysis (monday and ) via permacath with fluid overload and shortness of breath: Will plan for routine HD today and next on monday. Nephrovite 1 tab/day. vascular surgery eval for AVF. UF 4 kgs. Anemia: PRBC as needed. On ALLIE as Aranesp 60 mcg on , last Hb 9.1 Secondary hyperparathyroidism: continue with calcitriol. Last PTH level 110. Hypertension control with meds as ordered. added losartan 50 mg/day. compliance to meds reinforced Hilar and mediastinal lymphadenopathy: heme/onc eval. Hypokalemia: on 3 K dialysate bath, also started on losartan. K was supplemented. Glycemic control, Dialysis consistent diet Further work up for as per primary team Dose meds/antibiotics (if needed) for ESRD status. Avoid fleets enema/magnesium based laxatives. oral fluid restriction to 1000 mL/day d/c planning as per primary team. stable from renal perspective. Thanks for allowing me to participate in care of your patient. Will follow patient with you. Please call if any Qs Dr Papi Frazier Office: [phone] Subjective: no new complaints at this time. Denies chest pain, palpitations. improved SOB and cough no nausea no vomiting. noted events overnight. Exam: pt comfortable, no acute distress. seen during dialysis. Vitals reviewed and noted as below Lungs: b/l air entry + and equal, no use of accessory muscles. bibasal crackles + CVS: s1s2 normal. no rub/gallop. Abdomen: soft non tender obese no organomegaly Ext 1-2+ edema Neuro: AO x 3 , no focal deficit. Labs/imaging/EKG reviewed. Past medical history, past surgical history, family history, social history, allergy reviewed and noted as below Objective - Vital Signs/Intake and Output Vital Signs (last 24 hours): Temp Pulse Resp BP Pulse Ox 98.3 F 66 20 162/53 H 97 08/18/16 05:31 08/18/16 10:00 08/18/16 05:31 08/18/16 06:31 08/18/16 05:31 Intake and Output: 05/04/17 05/04/17 06:59 18:59 Intake Total 600 Output Total 1100 Balance -500 - Medications Medications: Current Medications Albuterol/Ipratropium (Duoneb 3 Mg/0.5 Mg (3 Ml) Ud) 3 ml IH [id number] [facility] Last Admin: 08/18/16 08:49 Dose: 3 ml Albuterol/Ipratropium (Duoneb 3 Mg/0.5 Mg (3 Ml) Ud) 3 ml IH Q2H PRN PRN Reason: Shortness of Breath Aspirin (Ecotrin) 81 mg PO QAM [facility] Last Admin: 08/17/16 10:34 Dose: Not Given Atorvastatin Calcium (Lipitor) 40 mg PO DIN [facility] Last Admin: 08/17/16 18:44 Dose: 40 mg Calcitriol (Rocaltrol) 0.25 mcg PO QAM [facility] Last Admin: 08/17/16 10:35 Dose: Not Given Clonidine HCl (Catapres) 0.1 mg PO TID PRN PRN Reason: Systolic Blood Pressure Last Admin: 08/16/16 22:11 Dose: 0.1 mg Hydralazine HCl (Apresoline) 25 mg PO BID [facility] Last Admin: 08/17/16 18:49 Dose: Not Given Hydralazine HCl (Apresoline) 10 mg IVP Q6 PRN PRN Reason: Systolic Blood Pressure Last Admin: 08/18/16 04:30 Dose: 10 mg Insulin Human Regular (Humulin R Med) 0 units SC ACHS [facility] PRN Reason: Protocol Last Admin: 08/18/16 11:32 Dose: Not Given Isosorbide Mononitrate (Imdur) 90 mg PO QPM [facility] Last Admin: 08/17/16 18:44 Dose: 90 mg Labetalol HCl (Trandate) 200 mg PO BID [facility] Last Admin: 08/17/16 18:55 Dose: 200 mg Losartan Potassium (Cozaar) 50 mg PO DAILY [facility] Last Admin: 08/17/16 18:18 Dose: Not Given Minoxidil (Minoxidil) 5 mg PO BID [facility] Last Admin: 08/17/16 18:44 Dose: 5 mg Mirtazapine (Remeron) 30 mg PO HS [facility] Last Admin: 08/17/16 21:35 Dose: 30 mg Nifedipine (Procardia Xl) 90 mg PO QAM [facility] Last Admin: 08/17/16 10:34 Dose: Not Given Pantoprazole Sodium (Protonix Ec Tab) 40 mg PO 0630 [facility] Last Admin: 08/18/16 06:31 Dose: 40 mg Sertraline HCl (Zoloft) 100 mg PO HS [facility] Last Admin: 08/17/16 21:35 Dose: 100 mg Vitamin B Complex/Vit C/Folic Acid (Nephro-Jamari) 1 tab PO DAILY [facility] - Labs Labs: 08/18/16 07:30 08/18/16 07:30 PT 12.1 Seconds (9.9-11.8) H 08/16/16 15:40 INR 1.12 (0.93-1.08) H 08/16/16 15:40 APTT 31.9 Seconds (23.7-30.8) H 08/16/16 15:40
[2016-08-18] MEDS: NIFEdipine 90 mg ER Tab PO SCH (13:31)
--- NOTE | 2016-08-18 15:28 | CP.PCM.DIS ---
<KelliKim - Last Filed: 08/18/16 15:31> Provider - Provider Date of Admission: 08/16/16 16:47 Attending physician: Wil Colón MD Primary care physician: Tameka Garrett MD Consults: Pulm: Gilda Nephro: Freddie Heme: Melba Time Spent in preparation of Discharge (in minutes): 35 Hospital Course - Lab Results Lab Results: Most Recent Lab Values WBC 4.4 10^3/ul (4.5-11.0) L 08/18/16 07:30 RBC 3.07 10^6/uL (3.5-6.1) L 08/18/16 07:30 Hgb 9.1 gm/dL (14.0-18.0) L 08/18/16 07:30 Hct 28.2 % (42.0-52.0) L 08/18/16 07:30 MCV 91.9 fL (80.0-105.0) 08/18/16 07:30 MCH 29.6 pg (25.0-35.0) 08/18/16 07:30 MCHC 32.3 g/dl (31.0-37.0) 08/18/16 07:30 RDW 14.8 % (11.5-14.5) H 08/18/16 07:30 Plt Count 230 10^3/uL (120.0-450.0) 08/18/16 07:30 MPV 9.6 fl (7.0-11.0) 08/18/16 07:30 Gran % 67.1 % (50.0-68.0) 08/18/16 07:30 Lymph % (Auto) 20.9 % (22.0-35.0) L 08/18/16 07:30 Beltrami % (Auto) 9.5 % (1.0-6.0) H 08/18/16 07:30 Eos % (Auto) 1.8 % (1.5-5.0) 08/18/16 07:30 Baso % (Auto) 0.7 % (0.0-3.0) 08/18/16 07:30 Gran # 2.98 (1.4-6.5) 08/18/16 07:30 Lymph # 0.9 (1.2-3.4) L 08/18/16 07:30 Beltrami # 0.4 (0.1-0.6) 08/18/16 07:30 Eos # 0.1 (0.0-0.7) 08/18/16 07:30 Baso # 0.03 K/mm3 (0.0-2.0) 08/18/16 07:30 PT 12.1 Seconds (9.9-11.8) H 08/16/16 15:40 INR 1.12 (0.93-1.08) H 08/16/16 15:40 APTT 31.9 Seconds (23.7-30.8) H 08/16/16 15:40 Sodium 141 mmol/L (132-148) 08/18/16 07:30 Potassium 3.3 mmol/L (3.6-5.0) L 08/18/16 07:30 Chloride 100 mmol/L (98-107) 08/18/16 07:30 Carbon Dioxide 30 mmol/L (21-33) 08/18/16 07:30 Anion Gap 14 (10-20) 08/18/16 07:30 BUN 32 mg/dL (7-21) H 08/18/16 07:30 Creatinine 2.9 mg/dL (0.5-1.4) H 08/18/16 07:30 Est GFR ( Amer) 26 08/18/16 07:30 Est GFR (Non-Af Amer) 21 08/18/16 07:30 POC Glucose (mg/dL) 102 mg/dL (65-110) 08/18/16 07:28 Random Glucose 95 mg/dL (70-110) 08/18/16 07:30 Calcium 9.0 mg/dL (8.4-10.5) 08/18/16 07:30 Phosphorus 4.0 mg/dL (2.5-4.5) 08/17/16 16:10 Magnesium 2.0 mg/dL (1.7-2.2) 08/17/16 16:10 Total Bilirubin 0.9 mg/dL (0.2-1.3) 08/18/16 07:30 AST 24 U/L (15-59) 08/18/16 07:30 ALT 33 U/L (7-56) 08/18/16 07:30 Alkaline Phosphatase 60 U/L (38-133) 08/18/16 07:30 Total Protein 7.4 g/dL (5.8-8.3) 08/18/16 07:30 Albumin 3.9 g/dL (3.0-4.8) 08/18/16 07:30 Globulin 3.5 gm/dL 08/18/16 07:30 Albumin/Globulin Ratio 1.1 (1.1-1.8) 08/18/16 07:30 - Hospital Course Hospital Course: This is a 70Y M with PMH ESRD on HD (T,T,Sat), CHF, HTN, DM and diastolic dysfunction admitted for fluid overload. During his stay, patient was refusing medication. Psychiatry was consulted and his Remeron was increased to 30mg daily. Spoke with daughter and son in law who emphasized the importance of medication and the patient understood. Losartan 50mg daily was added to his BP regimen as well as Clonidine 0.1mg BID prn SBP >180. The patient received hemodialysis for his fluid overload and his SOB has improved. He will continue his dialysis regimen and has had vein mapping done for AV fistula. The patient can follow up with Dr. De La O for outpatient AV fistula placement. Echo was done which showed EF of 52%, severe pulmonary HTN, severe triscuspid regurg and severely sclerotic aortic valve. The patient was noted to have perihilar infiltrate on CXR. Chest CT showed R hilar lymphadenopathy. Family reports this finding is chronic. Case discussed with pulmonary and hematology in detail. The patient can follow up with Hematology as outpatient for further workup. The patient should also follow up with PMD, Dr. Marquez in 1 week. - Date & Time of H&P Date of H&P: 08/16/16 Time of H&P: 14:00 Discharge Exam - Head Exam Head Exam: ATRAUMATIC, NORMAL INSPECTION Discharge Plan - Discharge Medications Prescriptions: cloNIDine [Catapres] 0.1 mg PO BID PRN #60 tab PRN Reason: Systolic Blood Pressure Losartan [Cozaar] 50 mg PO DAILY #30 tab Mirtazapine [Remeron] 30 mg PO DAILY #30 tab - Follow Up Plan Condition: FAIR Disposition: HOME/ ROUTINE Instructions: Pulmonary Edema (DC), Dialysis Diet (DC), Diabetes Mellitus Type 2 in Adults (DC), Chronic Hypertension (DC) Additional Instructions: 1. New medications for BP: Lorsartan 50mg daily and Clonidine 0.1mg BID prn SBP >180. 2. Remeron increased to 30mg 3. Please continue dialysis regimen with Dr. Frazier 4. Please follow up with Dr. De La O (Surgeon) in 1 week for outpatient placement of AV Fistula 5. Please follow up with PMD Dr. Garrett in 1 week. Referrals: Tameka Garrett MD [Primary Care Provider] - Giuseppe De La O MD [Staff Provider] - (AV fistula. Vein mapping completed ) <Wil Colón - Last Filed: 08/18/16 17:46> Provider - Provider Date of Admission: 08/16/16 16:47 Attending physician: Wil Colón MD Primary care physician: Tameka Garrett MD Hospital Course - Lab Results Lab Results: Most Recent Lab Values WBC 4.4 10^3/ul (4.5-11.0) L 08/18/16 07:30 RBC 3.07 10^6/uL (3.5-6.1) L 08/18/16 07:30 Hgb 9.1 gm/dL (14.0-18.0) L 08/18/16 07:30 Hct 28.2 % (42.0-52.0) L 08/18/16 07:30 MCV 91.9 fL (80.0-105.0) 08/18/16 07:30 MCH 29.6 pg (25.0-35.0) 08/18/16 07:30 MCHC 32.3 g/dl (31.0-37.0) 08/18/16 07:30 RDW 14.8 % (11.5-14.5) H 08/18/16 07:30 Plt Count 230 10^3/uL (120.0-450.0) 08/18/16 07:30 MPV 9.6 fl (7.0-11.0) 08/18/16 07:30 Gran % 67.1 % (50.0-68.0) 08/18/16 07:30 Lymph % (Auto) 20.9 % (22.0-35.0) L 08/18/16 07:30 Beltrami % (Auto) 9.5 % (1.0-6.0) H 08/18/16 07:30 Eos % (Auto) 1.8 % (1.5-5.0) 08/18/16 07:30 Baso % (Auto) 0.7 % (0.0-3.0) 08/18/16 07:30 Gran # 2.98 (1.4-6.5) 08/18/16 07:30 Lymph # 0.9 (1.2-3.4) L 08/18/16 07:30 Beltrami # 0.4 (0.1-0.6) 08/18/16 07:30 Eos # 0.1 (0.0-0.7) 08/18/16 07:30 Baso # 0.03 K/mm3 (0.0-2.0) 08/18/16 07:30 PT 12.1 Seconds (9.9-11.8) H 08/16/16 15:40 INR 1.12 (0.93-1.08) H 08/16/16 15:40 APTT 31.9 Seconds (23.7-30.8) H 08/16/16 15:40 Sodium 141 mmol/L (132-148) 08/18/16 07:30 Potassium 3.3 mmol/L (3.6-5.0) L 08/18/16 07:30 Chloride 100 mmol/L (98-107) 08/18/16 07:30 Carbon Dioxide 30 mmol/L (21-33) 08/18/16 07:30 Anion Gap 14 (10-20) 08/18/16 07:30 BUN 32 mg/dL (7-21) H 08/18/16 07:30 Creatinine 2.9 mg/dL (0.5-1.4) H 08/18/16 07:30 Est GFR ( Amer) 26 08/18/16 07:30 Est GFR (Non-Af Amer) 08/18/16 07:30 POC Glucose (mg/dL) 137 mg/dL (65-110) H 08/18/16 16:14 Random Glucose 95 mg/dL (70-110) 08/18/16 07:30 Calcium 9.0 mg/dL (8.4-10.5) 08/18/16 07:30 Phosphorus 4.0 mg/dL (2.5-4.5) 08/17/16 16:10 Magnesium 2.0 mg/dL (1.7-2.2) 08/17/16 16:10 Total Bilirubin 0.9 mg/dL (0.2-1.3) 08/18/16 07:30 AST 24 U/L (15-59) 08/18/16 07:30 ALT 33 U/L (7-56) 08/18/16 07:30 Alkaline Phosphatase 60 U/L (38-133) 08/18/16 07:30 Total Protein 7.4 g/dL (5.8-8.3) 08/18/16 07:30 Albumin 3.9 g/dL (3.0-4.8) 08/18/16 07:30 Globulin 3.5 gm/dL 08/18/16 07:30 Albumin/Globulin Ratio 1.1 (1.1-1.8) 08/18/16 07:30 Attending/Attestation - Attestation I have personally seen and examined this patient.: Yes I have fully participated in the care of the patient.: Yes I have reviewed all pertinent clinical information, including history, physical exam and plan: Yes Notes (Text): 08/18/16 17:41 Attending note; Patient seen and examined with resident in dialysis room. Patient is a 70 year old [place] male with past medical history of ESRD on hemodialysis (Tue, Thur, Sat), CHF, diastolic dysfunction, hypertension and diabetes mellitus type 2 is admitted for fluid overload. Patient will get hemodialysis yesterday and today. Patient is also refusing to take blood pressure medication initially.currently taking medications. cozaar and clonidine added. Shortness of breath and cough; Chest x-ray showed right perihilar infiltrate. CT chest showed right hilar lymphadenopathy. Case discussed with pulmonary in detail. Case discussed with oncology Dr. Kelley in detail. echocardiogram showed ejection fractiof 52% and severe pulmonary hypertension. Patient has long-standing hilar lymphanopathy and had workup as per patient's family. No need for further investigation as per family. Right chest dialysis catheter. Patient will need AV fistula as outpatient. Vein mapping done. Follow-up with outpatient for AV fistula. Anemia; chronic secondary to renal disease. Depression; psych evaluation appreciated. medication adjusted. Case discussed with patient's daughter and son in law in detail. Upon discharge patient will follow-up with PMD Dr. Tameka Garrett. Transfer the patient to [facility]. diagnosis; volume overload Uncontrolled hypertension Noncompliance with medicatinos History of long-standing hilar lymphadenopathy diastolic dysfunction/pulmonary hypertension ESRD on dialysis Anemia Depression
[2016-08-18 18:14] VITALS: BP 121/58; PULSE 66; RESP 19; TEMP 97.1
--- NOTE | 2016-08-18 18:45 | US ---
PROCEDURE: Bilateral upper extremity venous ultrasound HISTORY: End-stage renal disease. Map superficial venous system for dialysis access. PHYSICIAN(S): Dennis Hernandez MD. TECHNIQUE: Duplex ultrasound with graded compression was used to evaluate the basilic and cephalic veins bilaterally. FINDINGS: Right upper extremity: The right basilic vein in the forearm measures between 2 and 3 mm. The right basilic vein at the elbow measures 3.5 mm. The right basilic vein above the elbow is large, measuring 5-6 mm. The right cephalic vein in the forearm is large, measuring 4-5 mm. The right cephalic vein at the elbow measures 6 mm. The right cephalic vein above the elbow measures 6-7 mm. Left upper extremity: The left basilic vein in the forearm measures 2-3 mm. The left basilic vein at the elbow measures 6 mm. The left basilic vein above the elbow is large measuring 5-7 mm. The left cephalic vein in the forearm is large measuring 4-5 mm. The left cephalic vein at the elbow measures 6 mm. The left cephalic vein above the elbow is large measuring 5-7 mm. No evidence of wall thickening, thrombus, or chronic phlebitis is appreciated. IMPRESSION: The basilic and cephalic veins bilaterally are large and patent.
--- NOTE | 2016-08-19 18:04 | CP.PCM.PCO ---
Physician Communication Note - Physician Communication Note Physician Communication Note: on HD on 08/18/16, then pt was josiah, d/w , yadira f/u with psych [facility]
== END 2016-08-18 18:07 | DRG 640 ==
LOC: ED 15:08 → ERH 16:47 → 2RSO 21:22
PROVIDERS: ADMIT Internal Medicine; ATTEND Internal Medicine
PROC: 5A1D00Z (ICD-10-PCS; principal; 2016-08-17)
DX: E87.79 Other fluid overload (principal); N18.6 End stage renal disease; I13.2 Hypertensive heart and chronic kidney disease with heart failure and with stage 5 chronic kidney disease, or end stage renal disease; E11.22 Type 2 diabetes mellitus with diabetic chronic kidney disease; N25.81 Secondary hyperparathyroidism of renal origin; I27.2 Other secondary pulmonary hypertension; E83.39 Other disorders of phosphorus metabolism; I50.32 Chronic diastolic (congestive) heart failure; E87.6 Hypokalemia; I25.10 Atherosclerotic heart disease of native coronary artery without angina pectoris; D63.1 Anemia in chronic kidney disease; Z91.19 Patient's noncompliance with other medical treatment and regimen; Z96.641 Presence of right artificial hip joint; Z96.659 Presence of unspecified artificial knee joint; Z99.2 Dependence on renal dialysis; R40.2412 Glasgow coma scale score 13-15, at arrival to emergency department; R00.1 Bradycardia, unspecified; I51.7 Cardiomegaly; R59.0 Localized enlarged lymph nodes; F06.30 Mood disorder due to known physiological condition, unspecified; F32.9 Major depressive disorder, single episode, unspecified

== ENCOUNTER 2016-10-13 10:46 | Emergency (ER) | payer MEDICARE, OTHER ==
[2016-10-13 11:14] VITALS: BMI 24.5
[2016-10-13 11:15] VITALS: BP 134/62; PULSE 57; RESP 16; TEMP 98.4; O2SAT 96
--- NOTE | 2016-10-13 11:15 | ED PDOC ---
Arrival/HPI - General Time Seen by Provider: 10/13/16 11:00 Historian: Patient - History of Present Illness Narrative History of Present Illness (Text): 10/13/16 11:09 70 year old male whose past medical history includes ESRD on hemodialysis (T, Th , Sa), CHF, diastolic dysfunction, hypertension and diabetes mellitus presents to the emergency department with right hip pain after mechanical fall yesterday. Patient states he cannot stand due to the pain. Patient was at dialysis prior to arrival and was sent to the ED before beginning the session. Denies other complaints. PMD: Dr. Garrett Time/Duration: 24 hours Symptom Onset: Sudden Symptom Course: Unchanged Modifying Factors (Text): None Past Medical History - Provider Review Nursing Documentation Reviewed: Yes - Infectious Disease Hx of Infectious Diseases: None - Cardiac Hx Cardiac Disorders: Yes Hx Congestive Heart Failure: Yes Hx Hypertension: Yes - Pulmonary Hx Respiratory Disorders: No - Neurological Hx Neurological Disorder: No - HEENT Hx HEENT Disorder: No - Renal Date of Last Dialysis Treatment: 08/16/16 - Endocrine/Metabolic Hx Diabetes Mellitus Type 2: Yes - Hematological/Oncological Hx Blood Disorders: Yes Hx Anemia: Yes - Integumentary Hx Dermatological Disorder: No - Musculoskeletal/Rheumatological Hx Falls: No - Gastrointestinal Hx Gastrointestinal Disorders: No - Genitourinary/Gynecological Hx Genitourinary Disorders: No - Psychiatric Hx Substance Use: No - Surgical History Other/Comment: hip and knee replacement - Anesthesia Hx Anesthesia Reactions: No Hx Malignant Hyperthermia: No - Suicidal Assessment Feels Threatened In Home Enviroment: No Family/Social History - Physician Review Nursing Documentation Reviewed: Yes Family/Social History: Unknown Family HX Smoking Status: Never Smoked Hx Alcohol Use: No Hx Substance Use: No Allergies/Home Meds Allergies/Adverse Reactions: Allergies No Known Drug Allergies Allergy (Verified 05/05/15 07:32) NONE Home Medications: Home Meds Medication Instructions Recorded Confirmed Calcitriol [Rocaltrol] 0.25 mcg PO QAM 06/22/15 08/17/16 Hydralazine HCl 25 mg PO BID 06/22/15 08/17/16 Isosorbide Mononitrate [Imdur] 90 mg PO QPM 06/22/15 08/17/16 NIFEdipine ER [Procardia XL] 90 mg PO QPM 06/22/15 08/17/16 Rosuvastatin Calcium [Crestor] 10 mg PO QPM 06/22/15 08/17/16 Sertraline [Zoloft] 50 mg PO HS 06/22/15 08/17/16 B Complex W-C No.20/Folic Acid 1 mg PO DAILY 08/17/16 08/17/16 [Nephrocaps Softgel] Insulin Aspart [Novolog Flexpen] 1 unit SC QID 08/17/16 08/17/16 Labetalol [Trandate] 200 mg PO BID 08/17/16 08/17/16 Lactulose 30 ml PO BID PRN 08/17/16 08/17/16 Minoxidil 5 mg PO BID 08/17/16 08/17/16 Pantoprazole [Protonix EC Tab] 40 mg PO DAILY 08/17/16 08/17/16 Sennosides [Senna] 8.6 mg RC HS 08/17/16 08/17/16 Zolpidem [Ambien] 5 mg PO HS PRN 08/17/16 08/17/16 Review of Systems - Physician Review All systems were reviewed & negative as marked: Yes - Review of Systems Respiratory: absent: SOB Cardiovascular: absent: Chest Pain Musculoskeletal: Other (Right hip pain) Physical Exam Vital Signs Reviewed: Yes Vital Signs Temp Pulse Resp BP Pulse Ox 10/13/16 11:01 98.4 F 57 L 16 134/62 96 Temperature: Afebrile Blood Pressure: Normal Pulse: Bradycardic Respiratory Rate: Normal Appearance: Positive for: Well-Appearing, Non-Toxic, Uncomfortable Pain Distress: Mild Mental Status: Positive for: Alert and Oriented X 3 - Systems Exam Head: Present: Atraumatic, Normocephalic Pupils: Present: PERRL Extroacular Muscles: Present: EOMI Conjunctiva: Present: Normal Mouth: Present: Moist Mucous Membranes Neck: Present: Normal Range of Motion Respiratory/Chest: Present: Clear to Auscultation, Good Air Exchange. No: Respiratory Distress, Accessory Muscle Use Cardiovascular: Present: Regular Rate and Rhythm, Normal S1, S2. No: Murmurs Abdomen: Present: Normal Bowel Sounds. No: Tenderness, Distention, Peritoneal Signs Back: Present: Normal Inspection Upper Extremity: Present: Normal Inspection. No: Cyanosis, Edema Lower Extremity: Present: NORMAL PULSES, Tenderness (to the right hip). No: Edema, Normal ROM (Decreased ROM secondary to pain) Neurological: Present: GCS=15, CN II-XII Intact, Speech Normal Skin: Present: Warm, Dry, Normal Color. No: Rashes Psychiatric: Present: Alert, Oriented x 3, Normal Insight, Normal Concentration Medical Decision Making ED Course and Treatment: Impression: 70 year old male whose past medical history includes ESRD on hemodialysis (T, Th, Sa), CHF, diastolic dysfunction, hypertension and diabetes mellitus presents to the emergency department with right hip pain after mechanical fall yesterday. Differential Diagnosis included but are not limited to: Mechanical fall r/o fracture Plan: -- XR Hip -- Toradol -- Labs -- Reassess and disposition Prior Visits: Notes and results from previous visits were reviewed. Patient last seen in the ED on 08/16/16 for fluid overload with shortness of breath and admitted for hypertension. Progress Notes: 10/13/16 12:13 X-ray of the hip is negative as per Dr. Dunn. Patient will be discharged to go to dialysis. Findings and plan translated by [facility] staff. Patient expresses understanding and agrees with plan. - RAD Interpretation Radiology Orders: 10/13/16 11:09 HIP MIN 2V W/ PELVIS RT [RAD] Stat - Medication Orders Current Medication Orders: Discontinued Medications Ketorolac Tromethamine (Toradol) 15 mg IVP STAT STA Stop: 10/13/16 11:11 Last Admin: 10/13/16 12:06 Dose: 15 mg - Scribe Statement The provider has reviewed the documentation as recorded by the Elen Chaney Provider Scribe Attestation: All medical record entries made by the Elen were at my direction and personally dictated by me. I have reviewed the chart and agree that the record accurately reflects my personal performance of the history, physical exam, medical decision making, and the department course for this patient. I have also personally directed, reviewed, and agree with the discharge instructions and disposition. Disposition/Present on Arrival - Present on Arrival Any Indicators Present on Arrival: No History of DVT/PE: No History of Uncontrolled Diabetes: No Urinary Catheter: No History Surgical Site Infection Following: None - Disposition Have Diagnosis and Disposition been Completed?: Yes Diagnosis: Contusion, hip Disposition: HOME/ ROUTINE Disposition Time: 12:18 Patient Plan: Discharge Patient Problems: Current Active Problems Problem Status Onset Contusion, hip Acute Condition: IMPROVED Discharge Instructions (ExitCare): Hip Contusion (ED) Additional Instructions: Mr Minor, thank you for letting us take care of you today. Your provider was Dr. Galvan. You were treated for Right Hip Contusion. The emergency medical care you received today was directed at your acute symptoms. If you were prescribed any medication, please fill it and take as directed. It may take several days for your symptoms to resolve. Return to the Emergency Department if your symptoms worsen, do not improve, or if you have any other problems. Please contact your doctor or call one of the physicians/clinics you have been referred to that are listed on the Patient Visit Information form that is included in your discharge packet. Bring any paperwork you were given at discharge with you along with any medications you are taking to your follow up visit. Our treatment cannot replace ongoing medical care by a primary care provider (PCP) outside of the emergency department. Thank you for allowing the [facility] team to be part of your care today. If you had an X-Ray or CT scan: A Radiologist will review the ED reading if any change in treatment is needed we will contact you. If you had a blood, urine, or wound culture: It will take several days for the results, if any change in treatment is needed we will contact you. If you had an STI test: It will take 48 hours for the results. Please call after 1 week if you have not heard back. Prescriptions: Ibuprofen [Motrin] 600 mg PO Q6 PRN #30 tab PRN Reason: Pain, Moderate (4-7) Referrals: Tameka Garrett MD [Primary Care Provider] - Follow up with primary
--- NOTE | 2016-10-13 12:13 | RAD ---
PROCEDURE: Right Hip Radiographs. HISTORY: fall r/o fx COMPARISON: None. FINDINGS: BONES: Normal. No fracture. JOINTS: There is a right hip prosthesis. There is no fracture or loosening SOFT TISSUES: Normal. OTHER FINDINGS: None. IMPRESSION: Negative study
== END 2016-10-13 12:18 | disposition home or self-care (01) ==
LOC: ED 10:46
DX: S70.01XA Contusion of right hip, initial encounter (principal); W18.30XA Fall on same level, unspecified, initial encounter; Y93.9 Activity, unspecified; Y92.9 Unspecified place or not applicable
CPT/HCPCS: 73502; 96374; 99284; J1885